=== PATIENT | female | born 1975 | race Caucasian/White ===

== ENCOUNTER 2019-02-09 11:23 | Emergency (ER) | payer MEDICAID ==
[~2019-02-09] VITALS: Wt 70.0 kg
[2019-02-09 11:36] VITALS: BP 124/79; PULSE 79; RESP 18
--- NOTE | 2019-02-09 14:00 | ERD ---
ER Documentation Chief Complaint Chief Complaint HAD SYNCOPE 2 WEEKS AGO, HAS LEFT LEG PAIN AND NECK PAIN SINCE THEN HPI 43-year-old female presents the emergency department complaining of neck and back pain. Patient states that approximately 3 weeks ago she was in the sauna at the gym and passed out. She states she "tumbled" after she passed out. Since then, she is been complaining of neck and back pain. She reports no focal weakness or focal numbness. She states that she has not passed out since. Prior to the episode of passing out, she reported no chest pain or palpitations, no headache or other symptoms. ROS All systems reviewed and are negative except as per history of present illness. Allergies Allergies: Coded Allergies: No Known Allergy (Unverified , 02/09/19) PMhx/Soc Medical and Surgical Hx: pt denies Medical Hx, pt denies Surgical Hx Hx Alcohol Use: No Hx Substance Use: Yes (MARIJUANA) Hx Tobacco Use: No Smoking Status: Never smoker Physical Exam Vitals Vital Signs Date Temp Pulse Resp B/P (MAP) Pulse Ox O2 O2 Flow FiO2 Time Delivery Rate 02/09/19 98.2 79 18 124/79 99 11:36 (94) Physical Exam General: Well developed, well nourished in no acute distress HEENT: Scalp atraumatic with no laceration or evidence of skull fracture; no signs of basilar skull fracture. Face symmetric, stable and atraumatic Neck: Full range of motion without discomfort or neurologic symptoms, no midline cervical spine tenderness, step-off, or evidence of significant trauma CV: Regular rate, rhythm, no murmurs appreciated Lungs: Clear to auscultation bilaterally with no chest wall trauma appreciated, chest wall stable with no crepitus Abdomen: Soft, atraumatic and non-tender in all 4 quadrants Extremities: Atraumatic with no bony tenderness or deformity in all 4 extremities, full range of motion throughout all joints; pelvis stable to both AP and lateral compression Back: No thoracic or lumbar midline tenderness, no step-off or evidence of significant trauma Neurologic: Awake, alert and oriented, pupils equal, round and reactive to light, face symmetric, tongue midline, moving all extremities with equal and normal strength, sensory exam grossly non-focal Psych: Patient is a somewhat bizarre affect and demeanor. Normal mental status. No suicidal thoughts. No obvious hallucinations. Result Diagram: 02/09/19 1255 02/09/19 1255 Results 24 hrs Laboratory Tests Test 02/09/19 12:48 02/09/19 12:55 POC Beta HCG, Qualitative NEGATIVE White Blood Count 7.7 10^3/ul Red Blood Count 4.61 10^6/ul Hemoglobin 14.2 g/dl Hematocrit 42.4 % Mean Corpuscular Volume 92.0 fl Mean Corpuscular Hemoglobin 30.8 pg Mean Corpuscular Hemoglobin Concent 33.5 g/dl Red Cell Distribution Width 12.1 % Platelet Count 311 10^3/UL Mean Platelet Volume 9.9 fl Immature Granulocytes % 0.400 % Neutrophils % 62.0 % Lymphocytes % 29.4 % Monocytes % 6.0 % Eosinophils % 1.4 % Basophils % 0.8 % Nucleated Red Blood Cells % 0.0 /100WBC Immature Granulocytes # 0.030 10^3/ul Neutrophils # 4.8 10^3/ul Lymphocytes # 2.3 10^3/ul Monocytes # 0.5 10^3/ul Eosinophils # 0.1 10^3/ul Basophils # 0.1 10^3/ul Nucleated Red Blood Cells # 0.0 10^3/ul Sodium Level 142 mmol/L Potassium Level 4.0 mmol/L Chloride Level 102 mmol/L Carbon Dioxide Level 29 mmol/L Anion Gap 11 Blood Urea Nitrogen 10 mg/dl Creatinine 0.72 mg/dl Est Glomerular Filtrat Rate mL/min > 60 mL/min Glucose Level 92 mg/dl Calcium Level 9.9 mg/dl Troponin I < 0.012 ng/ml Procedures/MDM Patient was taken to a room, seen and evaluated. Comfort measures were initiated. Diagnostic tests were ordered and reviewed. 3 LEAD RHYTHM STRIP: Normal sinus rhythm without ectopy EK lead EKG reviewed by myself: Normal Sinus Rhythm Normal [place] and intervals No ST elevation, depression, or T wave inversion Impression: Normal EKG RADIOLOGY: Reviewed with the radiologist REEVALUATION: 1400: Diagnostic tests were appreciated and discussed with the patient. She remained neurologically normal and ambulatory and seemed appropriate for discharge MEDICAL DECISION MAKIN-year-old female presents the emergency department 3 weeks after passing out. From the standpoint of this possible syncopal episode, I see no evidence of arrhythmia, cardiac concerns, electrolyte concerns, anemia. From the concerns of possible injury after the accident, she is ambulatory without difficulty and x-rays demonstrate no signs of significant injury. Overall, patient appears clinically well and seems appropriate for discharge. Departure Diagnosis: Primary Impression: Passed out Condition: Stable Patient Instructions: Syncope, Unk Cause Additional Instructions: All the x-rays done today were normal. All the blood tests were also normal. Please see your doctor for reevaluation in the next few days. Take a copy of your results to your visit. MILDRED HALEY Feb 09, 2019 14:00
== END 2019-02-09 14:07 | disposition home or self-care (01) ==
LOC: FTE 11:23
DX: R55 Syncope and collapse (principal)
CPT/HCPCS: 36415; 72050; 72110; 80048; 81025; 84484; 85025; 93005; Z7502

== ENCOUNTER 2019-04-05 09:07 | Emergency (ER) | payer MEDICAID ==
[~2019-04-05] VITALS: Ht 154.9 cm; Wt 60.0 kg
[2019-04-05 09:14] VITALS: Ht 154.9 cm; Wt 60.0 kg
[2019-04-05 12:10] VITALS: BP 122/65; PULSE 74; RESP 19
--- NOTE | 2019-04-05 12:29 | ERD ---
ER Documentation Chief Complaint Chief Complaint HEADACHE, CONGESTION, BLURRY EYES ROS All systems reviewed and are negative except as per history of present illness. Allergies Allergies: Coded Allergies: No Known Allergy (Unverified , 04/05/19) PMhx/Soc Medical and Surgical Hx: pt denies Medical Hx, pt denies Surgical Hx Hx Alcohol Use: No Hx Substance Use: Yes (MARIJUANA) Hx Tobacco Use: No Smoking Status: Never smoker Physical Exam Vitals Vital Signs Date Temp Pulse Resp B/P (MAP) Pulse Ox O2 O2 Flow FiO2 Time Delivery Rate 04/05/19 98.2 74 19 122/65 100 Room Air 12:10 (84) 04/05/19 98.3 66 18 112/73 100 09:14 (86) Physical Exam Const: No acute distress Head: Atraumatic Eyes: Normal Conjunctiva ENT: Normal External Ears, Nose and Mouth. Neck: Full range of motion. No meningismus. Resp: Clear to auscultation bilaterally Cardio: Regular rate and rhythm, no murmurs Abd: Soft, non tender, non distended. Normal bowel sounds Skin: No petechiae or rashes Back: No midline or flank tenderness Ext: No cyanosis, or edema Neur: Awake and alert Psych: Normal Mood and Affect Departure Diagnosis: Primary Impression: Sinus pain Condition: Fair Patient Instructions: Causes of Sinusitis Referrals: [facility] YOU HAVE RECEIVED A MEDICAL SCREENING EXAM AND THE RESULTS INDICATE THAT YOU DO NOT HAVE A CONDITION THAT REQUIRES URGENT TREATMENT IN THE EMERGENCY DEPARTMENT. FURTHER EVALUATION AND TREATMENT OF YOUR CONDITION CAN WAIT UNTIL YOU ARE SEEN IN YOUR DOCTORS OFFICE WITHIN THE NEXT 1-2 DAYS. IT IS YOUR RESPONSIBILITY TO MAKE AN APPOINTMENT FOR FOLOW-UP CARE. IF YOU HAVE A PRIMARY DOCTOR --you should call your primary doctor and schedule an appointment IF YOU DO NOT HAVE A PRIMARY DOCTOR YOU CAN CALL OUR PHYSICIAN REFERRAL HOTLINE AT IF YOU CAN NOT AFFORD TO SEE A PHYSICIAN YOU CAN CHOSE FROM THE FOLLOWING [facility] [address] [facility] [address] [facility] [address] [facility] [address] [facility] [address] [facility]. [facility] [address] Additional Instructions: Call your primary care doctor TOMORROW for an appointment during the next 1-2 days.See the doctor sooner or return here if your condition worsens before your appointment time. REJI GONZALEZ DO April 05, 2019 12:29
== END 2019-04-05 12:12 | disposition home or self-care (01) ==
LOC: FTE 09:07
DX: J34.89 Other specified disorders of nose and nasal sinuses (principal)
CPT/HCPCS: 70486; Z7502

== ENCOUNTER 2019-05-16 12:44 | Emergency (ER) | payer MEDICAID ==
[~2019-05-16] VITALS: Ht 157.5 cm; Wt 59.8 kg
[2019-05-16 12:51] VITALS: BP 116/57; PULSE 66; RESP 18; Ht 157.5 cm; Wt 59.8 kg
--- NOTE | 2019-05-16 13:22 | ERD ---
ER Documentation Chief Complaint Chief Complaint cough, nasal congestion sorethroat x1 wk HPI 43-year-old female, presents to the emergency department complaining of 1 week with progressive cough, nasal congestion and sore throat. On arrival vital signs stable, patient afebrile normal oxygen saturation, normal blood pressure. The patient believes that her symptoms are caused by mold and dust mite in the apartment that she lives. Currently, she denies fever, no shortness of breath, no chest pain. She is requesting a refill for migraine medication. ROS All systems reviewed and are negative except as per history of present illness. Medications Home Meds Active Scripts Cromolyn Sodium (Nasal Allergy [place]) 13 Ml [place].pump, 13 ML NS DAILY, #1 Prov:BI SANON MD 05/16/19 Cetirizine Hcl* (Zyrtec*) 10 Mg Capsule, 10 MG PO DAILY, #10 TAB.CHEW Prov:BI SANON MD 05/16/19 Allergies Allergies: Coded Allergies: No Known Allergy (Unverified , 04/05/19) PMhx/Soc Hx Alcohol Use: No Hx Substance Use: Yes (MARIJUANA) Hx Tobacco Use: No Physical Exam Vitals Vital Signs Date Temp Pulse Resp B/P (MAP) Pulse Ox O2 O2 Flow FiO2 Time Delivery Rate 05/16/19 98.4 66 18 116/57 99 12:51 (76) Physical Exam Const: No acute distress Head: Atraumatic Eyes: Normal Conjunctiva ENT: Normal External Ears, Nose and Mouth. Neck: Full range of motion. No meningismus. Resp: Clear to auscultation bilaterally Cardio: Regular rate and rhythm, no murmurs Abd: Soft, non tender, non distended. Normal bowel sounds Skin: No petechiae or rashes Back: No midline or flank tenderness Ext: No cyanosis, or edema Neur: Awake and alert Psych: Normal Mood and Affect Procedures/MDM vital signs stable, differential diagnosis include but not limited to: Upper versus lower respiratory infection, bacterial/viral/fungal etiology. Asthma, pneumonitis, allergies, less likely meningitis. Low suspicion for acute systemic infection. Physical examination and clinical presentation consistent most likely with allergic rhinitis During the ED course the patient remained stable, no new complaints. Treatment options and clinical impression discussed with the patient who agrees with management. The patient is stable to be treated outpatient and will be discharged home with a Rx for antihistaminic. some side effects of prescribed medications (headache, rash, nausea, vomiting, diarrhea, hypertension, interactions with other medications) were reviewed. The patient was instructed to follow up with the primary care provider in the next 48h. If symptoms persist, worsen or new symptoms develop, then patient should return to the ED immediately. Disclaimer: Inadvertent spelling and grammatical errors are likely due to EHR/dictation software use and do not reflect on the overall quality of patient care. Also, please note that the electronic time recorded on this note does not necessarily reflect the actual time of the patient encounter. Departure Diagnosis: Primary Impression: Environmental allergies Additional Impressions: Sinus pain Allergic rhinitis Condition: Stable Additional Instructions: Thank you very much for allowing us to participate in your care. Your health and safety is our top priority at [facility]. The evaluation in the emergency department has been done to rule out an acute emergency. Chronic, [id number] conditions may have not been evaluated; therefore, you need to follow up with a primary care provider in the next 48h. If symptoms persist, worsen or new symptoms develop, then patient should return to the ED immediately. Call your primary care doctor TOMORROW for an appointment during the next 2-4 days and bring all the information provided. Have prescriptions filled and follow precisely the directions on the label. If the symptoms get worse and your provider is unavailable, return to the Emergency Department immediately. BI SANON MD May 16, 2019 13:22
[2019-05-16] MEDS ORDERED: CROM13SP5 NS (13:46)
[2019-05-16] MEDS ORDERED: CETI10CA PO (13:46)
[2019-05-16] MEDS ORDERED: ABCC1C PO (13:51)
== END 2019-05-16 14:21 | disposition home or self-care (01) ==
LOC: FTE 12:44
DX: J30.9 Allergic rhinitis, unspecified (principal); J34.89 Other specified disorders of nose and nasal sinuses
CPT/HCPCS: 99283